=== PATIENT | female | born 1985 | race Caucasian/White ===

== ENCOUNTER 2016-06-29 09:33 | Emergency (ER) | payer OTHER ==
[~2016-06-29] VITALS: Wt 62.0 kg
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
[2016-06-29] MEDS ORDERED: HYDROCODONE/APAP (5/325) TAB PO ONE (11:00)
--- NOTE | 2016-06-29 12:54 | RADRPT ---
PROCEDURE: XR Cervical Spine. CLINICAL INDICATION: Neck pain TECHNIQUE: Three views of the cervical spine were performed. COMPARISON: None. FINDINGS: The cervical vertebral bodies are normal in mineralization, architecture and alignment. No fracture or osseous lesion is identified. No subluxation is demonstrated. The disk spaces are unremarkable. The uncinate joints are unremarkable. The facet joints are unremarkable. No soft tissue abnormal ity is identified. IMPRESSION: Unremarkable cervical spine. RPTAT: HGDB .Demarcus Harding MD, MD Date Time Electronically viewed and signed by .Demarcus Harding MD, on 06/29/2016 12:54 .B/
--- NOTE | 2016-06-29 12:55 | RADRPT ---
PROCEDURE: CR left humerus CLINICAL INDICATION: Arm pain TECHNIQUE: 2 views of humerus performed COMPARISON: No comparison available. FINDINGS: The osseous structures are normal in mineralization, architecture and alignment.No fracture or osseo us lesion is identified. The joints are unremarkable. The soft tissues are unremarkable. IMPRESSION: Unremarkable examination. RPTAT: HGDB .Demarcus Harding MD, MD Date Time Electronically viewed and signed by .Demarcus Harding MD, on 06/29/2016 12:54 .B/
--- NOTE | 2016-06-29 12:56 | RADRPT ---
PROCEDURE: CR left shoulder CLINICAL INDICATION: Shoulder pain TECHNIQUE: 3 views performed COMPARISON: No comparison available. FINDINGS: There is normal mineralization, architecture and alignment.No fracture or osseous lesion is identifi ed.The glenohumeral and acromioclavicular joints are unremarkable. The soft tissues are unremarkable . IMPRESSION: Unremarkable examination. RPTAT: HGDB .Demarcus Harding MD, MD Date Time Electronically viewed and signed by .Demarcus Harding MD, MD on 06/29/2016 12:55 .B/
[2016-06-29] MEDS ORDERED: HYDR-906 PO (13:05)
[2016-06-29] MEDS ORDERED: ACET500C5 PO (13:06)
[2016-06-29] MEDS ORDERED: CYCL-319 PO (13:07)
[2016-06-29 13:24] VITALS: BP 135/78; PULSE 78; RESP 20; TEMP 98.2
== END 2016-06-29 13:25 | disposition home or self-care (01) ==
LOC: FTE 09:33
DX: S19.9XXA Unspecified injury of neck, initial encounter (principal); S49.92XA Unspecified injury of left shoulder and upper arm, initial encounter; S09.90XA Unspecified injury of head, initial encounter; V43.52XA Car driver injured in collision with other type car in traffic accident, initial encounter
CPT/HCPCS: 72040; 73030; 73060; Z7502; Z7610